=== PATIENT | male | born 1995 | race African-American/Black ===

== ENCOUNTER 2017-07-23 09:32 | Outpatient (RCR) | payer OTHER | END 2017-08-08 13:56 | disposition still patient (30) | LOC: WSOH 09:32 | DX: T15.01XA Foreign body in cornea, right eye, initial encounter (principal); Y92.61 Building [any] under construction as the place of occurrence of the external cause; Y99.0 Civilian activity done for income or pay ==

== ENCOUNTER → 2017-07-23 | Outpatient (REF) ==
[~2017-07-23] MED LIST: ACETAMINOPHEN W1 TA6 PO; ALBUTEROL SULFAT3 M3; ALBUTEROL0.09 MG/A1 IH; AMOXICILLI250 MG/5 M PO; CHERATUSSIN AC; DEXAMETHASONE4 MG PO; FLONASE0.05 MG/AC NS; PEPCID AC 10MG10 MG PO; PREDNISONE10 MG; PREDNISONE20 MG PO; PREVACID30 MG PO; SINGULAIR; SINGULAIR10 MG PO; ZANTAC 7575 MG PO; ZITHROMAX Z PA250 MG PO; ZOFRAN 4MG T4 MG/TAB PO; ZYRTEC 10MG10 MG PO; ZYRTEC10 MG PO; inhaler; nebulizer
== END ==
LOC: WSOH 09:37
DX: Z02.89 Encounter for other administrative examinations (principal)

== ENCOUNTER 2018-12-31 14:32 | Outpatient (RCR) | payer OTHER | END 2019-03-30 15:52 | disposition home or self-care (01) | LOC: WSOH 14:32 | DX: M65.4 Radial styloid tenosynovitis [de Quervain] (principal); X50.0XXA Overexertion from strenuous movement or load, initial encounter; Y92.59 Other trade areas as the place of occurrence of the external cause; Y99.0 Civilian activity done for income or pay; F17.210 Nicotine dependence, cigarettes, uncomplicated | CPT/HCPCS: 24091; A6549 ==

== ENCOUNTER → 2020-05-22 | Outpatient (CLI) | payer SELFPAY | LOC: ZCOL.LAB 14:55 | DX: Z20.828 Contact with and (suspected) exposure to other viral communicable diseases (principal) ==

== ENCOUNTER 2022-04-24 07:09 | Emergency (ER) | payer SELFPAY ==
[~2022-04-24] VITALS: Ht 190.5 cm; Wt 109.1 kg
[2022-04-24 07:16] VITALS: BP 129/92; TEMP 97.7
[2022-04-24] MEDS ORDERED: ILOTYCIN5 MG/GM OP (07:29)
[2022-04-24 07:38] VITALS: PULSE 82
== END 2022-04-24 07:38 | disposition home or self-care (01) ==
LOC: COL.ER 07:09
DX: S05.01XA Injury of conjunctiva and corneal abrasion without foreign body, right eye, initial encounter (principal); Z88.0 Allergy status to penicillin; X58.XXXA Exposure to other specified factors, initial encounter

== ENCOUNTER 2023-08-26 12:11 | Emergency (ER) | payer MEDICAID ==
[~2023-08-26] VITALS: Ht 190.5 cm; Wt 113.6 kg
[~2023-08-26 12:11] MED LIST changes: +ILOTYCIN5 MG/GM OP
[2023-08-26 12:14] VITALS: BP 134/90; TEMP 97.8
[2023-08-26] MEDS ORDERED: PAXLOVID CO-PA1 EACH PO (12:36)
[2023-08-26] MEDS ORDERED: ATROVENT NASAL15 ML NS (12:36)
[2023-08-26 12:53] VITALS: PULSE 73
== END 2023-08-26 12:52 | disposition home or self-care (01) ==
LOC: COL.ER 12:11
DX: B34.9 Viral infection, unspecified (principal); R09.89 Other specified symptoms and signs involving the circulatory and respiratory systems; R05.9 Cough, unspecified